=== PATIENT | female | born 1995 | race American Indian/Alaskan Native ===

== ENCOUNTER 2017-01-30 16:47 | Emergency (ER) | payer OTHER, BC ==
[2017-01-30 17:01] VITALS: BP 147/92
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
== END 2017-01-30 20:16 | disposition home or self-care (01) ==
LOC: ED 16:47
DX: M54.5 Low back pain (principal); V49.50XA Passenger injured in collision with unspecified motor vehicles in traffic accident, initial encounter; Y93.89 Activity, other specified; Y92.89 Other specified places as the place of occurrence of the external cause; Y99.8 Other external cause status
CPT/HCPCS: 99282